=== PATIENT | male | born 1950 | race Caucasian/White ===

== ENCOUNTER 2018-06-24 14:25 | Inpatient (IN) | payer MEDICARE, MEDICAID ==
[~2018-06-24] VITALS: Ht 182.9 cm; Wt 71.7 kg
[2018-06-24] MEDS ORDERED: DULCOLAX10 MG RC (14:30)
[2018-06-24] MEDS ORDERED: PROLENSA1.6 ML OP (14:30)
[2018-06-24] MEDS ORDERED: COREG3.125 MG ORAL (14:30)
[2018-06-24] MEDS ORDERED: LOVENOX40 MG/0.4 SUBQ (14:30)
[2018-06-24] MEDS ORDERED: ACETAMINOPHEN325 M1 ORAL (14:30)
[2018-06-24] MEDS ORDERED: MULTIVITAMINS1 EAC2 ORAL (14:30)
[2018-06-24] MEDS ORDERED: Sodium Chloride 500ML 500 ML IV ONE (14:38)
--- NOTE | 2018-06-24 14:42 | Emergency Room Report ---
History of Present Illness General Chief Complaint: Seizure Source: Medical Record Present Illness HPI Patient is a 67-year-old male sent in by the nursing facility after a witnessed seizure. Patient had no prior history of seizure disorder. Patient was noted to have prior history of COPD as well as paranoid schizophrenia. The patient noted to be full code. The patient reports having generalized body aches. The patient had prior history of polyneuropathy. The history is limited by patient' s poor historian Allergies: Coded Allergies: No Known Allergies (Unverified , 06/24/18) Patient History Reviewed Nursing Documentation: PMH: Agreed; PSxH: Agreed Nursing Documentation-PMH Hx Cardiac Problems: Yes - hyperlipidemia Hx Hypertension: Yes Hx COPD: Yes Hx Diabetes: Yes Review of Systems All Other Systems: negative except mentioned in HPI Physical Exam Vital Signs Date Time Temp Pulse Resp B/P (MAP) Pulse Ox O2 Delivery O2 Flow Rate FiO2 06/24/18 14:20 97.6 52 24 126/73 96 Nasal Cannula 2.0 97.5 Sp02 EP Interpretation: reviewed, normal General Appearance: normal inspection, Chronically Ill Head: atraumatic ENT: normal ENT inspection, hearing grossly normal, normal voice, other - edentulous Neck: normal inspection, full range of motion, supple, no bony tend Respiratory: normal inspection, lungs clear, normal breath sounds, no respiratory distress, no retraction, no wheezing Cardiovascular #1: regular rate, rhythm, no edema Gastrointestinal: normal inspection, normal bowel sounds, non tender, soft, no guarding, no hernia Genitourinary: no CVA tenderness Musculoskeletal: back normal, other - left upper extremity tremor Neurologic: normal inspection, alert, responsive, speech normal Psychiatric: mood/affect normal Skin: normal inspection, normal color, no rash Medical Decision Making Diagnostic Impression: Primary Impression: New onset seizure Additional Impression: Urinary tract infection ER Course Patient presented for seizure. Differential diagnosis included stroke, alcohol withdrawal, cysticercosis, electrolyte abnormality, mass lesion, or intacranial hemorrhage.The laboratory testing was unremarkable CT the head read by radiology showed basal ganglia calcification. The patient was given IV Keppra. Dr. Gentry Mcqueen was contacted for inpatient management Labs Test 06/24/18 14:41 06/24/18 14:56 White Blood Count 11.3 K/UL (4.8-10.8) Red Blood Count 4.61 M/UL (4.70-6.10) Hemoglobin 13.9 G/DL (14.2-18.0) Hematocrit 42.8 % (42.0-52.0) Mean Corpuscular Volume 93 FL (80-99) Mean Corpuscular Hemoglobin 30.1 PG (27.0-31.0) Mean Corpuscular Hemoglobin Concent 32.4 G/DL (32.0-36.0) Red Cell Distribution Width 13.2 % (11.6-14.8) Platelet Count 227 K/UL (150-450) Mean Platelet Volume 8.4 FL (6.5-10.1) Neutrophils (%) (Auto) 67.0 % (45.0-75.0) Lymphocytes (%) (Auto) 20.4 % (20.0-45.0) Monocytes (%) (Auto) 8.6 % (1.0-10.0) Eosinophils (%) (Auto) 3.3 % (0.0-3.0) Basophils (%) (Auto) 0.7 % (0.0-2.0) Sodium Level 137 MMOL/L (136-145) Potassium Level 4.1 MMOL/L (3.5-5.1) Chloride Level 105 MMOL/L (98-107) Carbon Dioxide Level 28 MMOL/L (21-32) Anion Gap 4 mmol/L (5-15) Blood Urea Nitrogen 18 mg/dL (7-18) Creatinine 0.7 MG/DL (0.55-1.30) Estimat Glomerular Filtration Rate > 60 mL/min (>60) Glucose Level 127 MG/DL (74-106) Calcium Level 9.4 MG/DL (8.5-10.1) Total Bilirubin 0.7 MG/DL (0.2-1.0) Aspartate Amino Transf (AST/SGOT) 11 U/L (15-37) Alanine Aminotransferase (ALT/SGPT) 19 U/L (12-78) Alkaline Phosphatase 75 U/L (46-116) Total Protein 7.0 G/DL (6.4-8.2) Albumin 3.0 G/DL (3.4-5.0) Globulin 4.0 g/dL Albumin/Globulin Ratio 0.8 (1.0-2.7) Urine Color Pale yellow Urine Appearance Slightly cloudy Urine pH 7 (4.5-8.0) Urine Specific [place] 1.010 (1.005-1.035) Urine Protein Negative (NEGATIVE) Urine Glucose (UA) Negative (NEGATIVE) Urine Ketones Negative (NEGATIVE) Urine Blood Negative (NEGATIVE) Urine Nitrite Positive (NEGATIVE) Urine Bilirubin Negative (NEGATIVE) Urine Urobilinogen Normal MG/DL (0.0-1.0) Urine Leukocyte Esterase 2+ (NEGATIVE) Urine RBC 0 /HPF (0 - 0) Urine WBC 5-10 /HPF (0 - 0) Urine Squamous Epithelial Cells Few /LPF (NONE/OCC) Urine Bacteria Many /HPF (NONE) Urine Opiates Screen Negative (NEGATIVE) Urine Barbiturates Screen Negative (NEGATIVE) Phencyclidine (PCP) Screen Negative (NEGATIVE) Urine Amphetamines Screen Negative (NEGATIVE) Urine Benzodiazepines Screen Negative (NEGATIVE) Urine Cocaine Screen Negative (NEGATIVE) Urine Marijuana (THC) Screen Negative (NEGATIVE) EKG Diagnostic Results Rate: bradycardiac - 51 Rhythm: NSR ST Segments: no acute changes ASA given to the pt in ED: No Last Vital Signs Date Time Temp Pulse Resp B/P (MAP) Pulse Ox O2 Delivery O2 Flow Rate FiO2 06/24/18 14:20 97.6 52 24 126/73 96 Nasal Cannula 2.0 97.5 Status: unchanged Disposition: ADMITTED INPATIENT Condition: Stable Referrals: Gentry Mcqueen DO (PCP) Thien Enriquez MD Jun 24, 2018 14:42
[2018-06-24] MEDS ORDERED: levETIRAcetam 500 MG in D5W 110 ML IV ONE (14:45)
[2018-06-24 14:58] LABS: BASOPHILS % (AUTO) 0.7 % (0.0-2.0); EOSINOPHILS % (AUTO) 3.3 % (0.0-3.0); HEMATOCRIT 42.8 % (42.0-52.0); HEMOGLOBIN 13.9 G/DL (14.2-18.0); LYMPHOCYTES % (AUTO) 20.4 % (20.0-45.0); MEAN CORPUSCULAR VOLUME 93 FL (80-99); MONOCYTES % (AUTO) 8.6 % (1.0-10.0); PLATELET COUNT 227 K/UL (150-450); RED BLOOD COUNT 4.61 M/UL (4.70-6.10); RED CELL DISTRIBUTION WIDTH 13.2 % (11.6-14.8); WHITE BLOOD COUNT 11.3 K/UL (4.8-10.8)
[2018-06-24 15:08] LABS: ANION GAP 4 mmol/L (5-15); BLOOD UREA NITROGEN 18 mg/dL (7-18); CALCIUM 9.4 MG/DL (8.5-10.1); CARBON DIOXIDE 28 MMOL/L (21-32); CHLORIDE 105 MMOL/L (98-107); CREATININE 0.7 MG/DL (0.55-1.30); POTASSIUM 4.1 MMOL/L (3.5-5.1); SODIUM 137 MMOL/L (136-145)
[2018-06-24 15:13] LABS: ALANINE AMINOTRANSFERASE 19 U/L (12-78); ALBUMIN/GLOBULIN RATIO 0.8 (1.0-2.7); ALKALINE PHOSPHATASE 75 U/L (46-116); ASPARTATE AMINO TRANSFERASE 11 U/L (15-37); BILIRUBIN,TOTAL 0.7 MG/DL (0.2-1.0)
[2018-06-24 15:27] VITALS: BP 139/75
[2018-06-24 15:27] LABS: APPEARANCE,URINE SLIGHTLY CLOUDY; BILIRUBIN, URINE NEGATIVE (NEGATIVE); COLOR,URINE PALE YELLOW; GLUCOSE, URINE (UA) NEGATIVE (NEGATIVE); KETONES,URINE NEGATIVE (NEGATIVE); LEUKOCYTE ESTERASE ,URINE 2+ (NEGATIVE); NITRITE,URINE POSITIVE (NEGATIVE); PH,URINE 7 (4.5-8.0); PROTEIN,URINE NEGATIVE (NEGATIVE); UROBILINOGEN,URINE NORMAL MG/DL (0.0-1.0)
--- NOTE | 2018-06-24 16:07 | Diagnostic Imaging Report ---
Indications: Status post seizure Technique: Spiral acquisitions obtained through the brain. Angled axial and coronal 5 x 5 mm slices were reconstructed. Total dose length product 1527.4 mGycm. CTDI vol(s) 70.38 mGy. Dose reduction achieved using automated exposure control Comparison: None. Findings: There is some image degradation due to motion artifact. A large calcification is seen in the genu of the right internal capsule. No gross acute intracranial hemorrhage or edema, mass effect, nor midline shift. There is mild age-related enlargement of the axial CSF spaces. There is minimal periventricular deep white matter low-attenuation. The calvarium is grossly intact. Visualized orbits and sinuses are unremarkable except for possible bilateral prior cataract surgery. Impression: Somewhat limited exam, as described Right internal capsule calcification. 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 is accredited by the [employer] and the scans are performed using protocols designed to limit radiation exposure to as low as reasonably achievable to attain images of sufficient resolution adequate for diagnostic evaluation.
[2018-06-24 17:57] VITALS: BP 134/78
[2018-06-24] MEDS ORDERED: TRAZODONE HCL50 MG ORAL (18:09)
[2018-06-24] MEDS ORDERED: SEROQUEL25 MG ORAL (18:09)
[2018-06-24] MEDS ORDERED: LEXAPRO20 MG ORAL (18:09)
[2018-06-24] MEDS ORDERED: COLACE100 MG ORAL (18:09)
[2018-06-24] MEDS ORDERED: HEPARIN SO5000 UNIT2 IV (18:11)
[2018-06-24] MEDS ORDERED: PRO-STAT LIQUID30 ML ORAL (18:12)
[2018-06-24] MEDS ORDERED: ATIVAN0.5 MG ORAL (18:15)
[2018-06-24 18:36] VITALS: BP 130/80
[2018-06-24] MEDS ORDERED: Morphine Sulfate 2mg/ml Inj IVP PRN (18:45)
[2018-06-24] MEDS ORDERED: Mylanta II UD 30ml ORAL PRN (18:45)
[2018-06-24] MEDS ORDERED: LORazepam Inj 2mg/ml 1ml IV PRN (18:45)
[2018-06-24] MEDS ORDERED: Miralax 17gm pkt ORAL PRN (18:45)
[2018-06-24 20:00] VITALS: BP 120/73
[2018-06-24] MEDS ORDERED: Zolpidem 5mg tab ORAL PRN (21:00)
[2018-06-24] MEDS: TraZODone 50mg tab ORAL SCH (21:15)
[2018-06-24] MEDS: Heparin 5000 units/ml inj SUBQ SCH (21:16)
[2018-06-24] MEDS: LORazepam 0.5mg tab ORAL PRN (22:00)
[2018-06-24 23:54] VITALS: BP 93/54
[2018-06-25 04:00] VITALS: BP 111/62
[2018-06-25 07:27] LABS: BASOPHILS % (AUTO) 0.5 % (0.0-2.0); EOSINOPHILS % (AUTO) 1.4 % (0.0-3.0); HEMATOCRIT 42.9 % (42.0-52.0); LYMPHOCYTES % (AUTO) 11.1 % (20.0-45.0); MEAN CORPUSCULAR VOLUME 93 FL (80-99); MONOCYTES % (AUTO) 6.9 % (1.0-10.0); PLATELET COUNT 214 K/UL (150-450); RED BLOOD COUNT 4.62 M/UL (4.70-6.10); RED CELL DISTRIBUTION WIDTH 12.8 % (11.6-14.8); WHITE BLOOD COUNT 11.8 K/UL (4.8-10.8)
[2018-06-25 07:48] LABS: ALANINE AMINOTRANSFERASE 19 U/L (12-78); ALBUMIN/GLOBULIN RATIO 0.7 (1.0-2.7); ALKALINE PHOSPHATASE 73 U/L (46-116); ANION GAP 10 mmol/L (5-15); ASPARTATE AMINO TRANSFERASE 9 U/L (15-37); BILIRUBIN,TOTAL 1.2 MG/DL (0.2-1.0); BLOOD UREA NITROGEN 13 mg/dL (7-18); CALCIUM 9.5 MG/DL (8.5-10.1); CARBON DIOXIDE 24 MMOL/L (21-32); CHLORIDE 107 MMOL/L (98-107); CREATININE 0.7 MG/DL (0.55-1.30); SODIUM 141 MMOL/L (136-145)
[2018-06-25 07:53] LABS: BILIRUBIN,DIRECT 0.3 MG/DL (0.0-0.3)
[2018-06-25 08:00] VITALS: BP 103/64
--- NOTE | 2018-06-25 08:08 | Consultation ---
History of Present Illness General Date patient seen: Jun 25, 2018 Chief Complaint: Seizure Reason for Consultation: Leukocytosis Present Illness HPI Mr. Helton is a 67 yo male who presented to the ED on 06/24/18 with witnessed seizures at his residential. He apparently had 2 the day prior to admission and one the day of. He is a poor historian due to aphasia but per notes he has no Hx of seizure. In the ED he was afebrile and had a mild leukocytosis. He has a few WBCs in his UA but is asymptomatic. He has not had further seizures as an inpatient. ID was consulted for leukocytosis PMHx/PSHx HTN COPD DM SocHx Live in a residential FamHx Not contributory Allergies: Coded Allergies: No Known Allergies (Unverified , 06/24/18) Medication History Scheduled Amino Acids/Protein Hydrolys (Pro-Stat Liquid), 30 ML ORAL DAILY, (Reported) Bromfenac Sodium (Prolensa), 1.6 ML OP DAILY, (Reported) Carvedilol (Coreg), 3.125 MG ORAL EVERY 12 HOURS, (Reported) Docusate Sodium* (Colace*), 100 MG ORAL QHS, (Reported) Escitalopram Oxalate* (Lexapro*), 20 MG ORAL DAILY, (Reported) Heparin Sod (Porcine) (Heparin Sodium*), 5,000 UNITS IV DAILY, (Reported) Multivitamins* (Multivitamins*), 1 TAB ORAL DAILY, (Reported) Quetiapine Fumarate* (Seroquel*), 25 MG ORAL TWICE A DAY, (Reported) Trazodone Hcl* (Desyrel*), 50 MG ORAL BEDTIME, (Reported) Scheduled PRN Acetaminophen* (Acetaminophen 325MG Tablet*), 325 MG ORAL Q4H PRN for For Pain, (Reported) Lorazepam* (Ativan*), 0.5 MG ORAL THREE TIMES A DAY PRN for For Anxiety, ( Reported) Discontinued Medications Bisacodyl (Dulcolax), 10 MG RC, (Reported) Discontinued Reason: Pt stopped taking med Enoxaparin (Lovenox), 40 MG SUBQ, (Reported) Discontinued Reason: Pt stopped taking med Patient History Healthcare decision maker N Resuscitation status Full Code Advanced Directive on File No Review of Systems All Other Systems: negative except mentioned in HPI ROS Narrative Unable to obtain as patient not verbal Physical Exam Last 24 Hour Vital Signs Date Time Temp Pulse Resp B/P (MAP) Pulse Ox O2 Delivery O2 Flow Rate FiO2 06/25/18 04:00 98.0 95 20 111/62 (78) 99 98.0 06/25/18 04:00 68 06/24/18 23:54 97.9 78 20 93/54 (67) 98 97.9 06/24/18 23:36 Room Air 06/24/18 23:30 65 06/24/18 21:00 57 06/24/18 20:00 97.3 85 20 120/73 (89) 98 97.3 06/24/18 19:34 54 06/24/18 18:36 98.9 80 20 130/80 (97) 98 98.9 06/24/18 18:01 97.5 54 15 134/78 95 Nasal Cannula 2.0 97.5 06/24/18 17:57 97.5 54 15 134/78 95 Nasal Cannula 2.0 97.5 06/24/18 15:27 97.5 48 15 139/75 94 Nasal Cannula 2.0 97.5 06/24/18 14:45 52 24 Nasal Cannula 2.0 06/24/18 14:20 97.6 52 24 126/73 96 Nasal Cannula 2.0 97.5 Intake and Output 06/24/18 06/25/18 19:00 07:00 Intake Total 615 ml 100 ml Balance 615 ml 100 ml Intake IV Total 615 ml 100 ml # Voids 1 2 Laboratory Tests Test 06/24/18 14:41 06/24/18 14:56 06/25/18 05:55 White Blood Count 11.3 K/UL (4.8-10.8) H 11.8 K/UL (4.8-10.8) H Red Blood Count 4.61 M/UL (4.70-6.10) L 4.62 M/UL (4.70-6.10) L Hemoglobin 13.9 G/DL (14.2-18.0) L 14.0 G/DL (14.2-18.0) L Hematocrit 42.8 % (42.0-52.0) 42.9 % (42.0-52.0) Mean Corpuscular Volume 93 FL (80-99) 93 FL (80-99) Mean Corpuscular Hemoglobin 30.1 PG (27.0-31.0) 30.4 PG (27.0-31.0) Mean Corpuscular Hemoglobin Concent 32.4 G/DL (32.0-36.0) 32.7 G/DL (32.0-36.0) Red Cell Distribution Width 13.2 % (11.6-14.8) 12.8 % (11.6-14.8) Platelet Count 227 K/UL (150-450) 214 K/UL (150-450) Mean Platelet Volume 8.4 FL (6.5-10.1) 7.1 FL (6.5-10.1) Neutrophils (%) (Auto) 67.0 % (45.0-75.0) 80.0 % (45.0-75.0) H Lymphocytes (%) (Auto) 20.4 % (20.0-45.0) 11.1 % (20.0-45.0) L Monocytes (%) (Auto) 8.6 % (1.0-10.0) 6.9 % (1.0-10.0) Eosinophils (%) (Auto) 3.3 % (0.0-3.0) H 1.4 % (0.0-3.0) Basophils (%) (Auto) 0.7 % (0.0-2.0) 0.5 % (0.0-2.0) Sodium Level 137 MMOL/L (136-145) 141 MMOL/L (136-145) Potassium Level 4.1 MMOL/L (3.5-5.1) 4.0 MMOL/L (3.5-5.1) Chloride Level 105 MMOL/L (98-107) 107 MMOL/L (98-107) Carbon Dioxide Level 28 MMOL/L (21-32) 24 MMOL/L (21-32) Anion Gap 4 mmol/L (5-15) L 10 mmol/L (5-15) Blood Urea Nitrogen 18 mg/dL (7-18) 13 mg/dL (7-18) Creatinine 0.7 MG/DL (0.55-1.30) 0.7 MG/DL (0.55-1.30) Estimat Glomerular Filtration Rate > 60 mL/min (>60) > 60 mL/min (>60) Glucose Level 127 MG/DL (74-106) H 72 MG/DL (74-106) L Calcium Level 9.4 MG/DL (8.5-10.1) 9.5 MG/DL (8.5-10.1) Total Bilirubin 0.7 MG/DL (0.2-1.0) 1.2 MG/DL (0.2-1.0) H Aspartate Amino Transf (AST/SGOT) 11 U/L (15-37) L 9 U/L (15-37) L Alanine Aminotransferase (ALT/SGPT) 19 U/L (12-78) 19 U/L (12-78) Alkaline Phosphatase 75 U/L (46-116) 73 U/L (46-116) Total Protein 7.0 G/DL (6.4-8.2) 7.1 G/DL (6.4-8.2) Albumin 3.0 G/DL (3.4-5.0) L 3.0 G/DL (3.4-5.0) L Globulin 4.0 g/dL 4.1 g/dL Albumin/Globulin Ratio 0.8 (1.0-2.7) L 0.7 (1.0-2.7) L Urine Color Pale yellow Urine Appearance Slightly cloudy Urine pH 7 (4.5-8.0) Urine Specific [place] 1.010 (1.005-1.035) Urine Protein Negative (NEGATIVE) Urine Glucose (UA) Negative (NEGATIVE) Urine Ketones Negative (NEGATIVE) Urine Blood Negative (NEGATIVE) Urine Nitrite Positive (NEGATIVE) H Urine Bilirubin Negative (NEGATIVE) Urine Urobilinogen Normal MG/DL (0.0-1.0) Urine Leukocyte Esterase 2+ (NEGATIVE) H Urine RBC 0 /HPF (0 - 0) Urine WBC 5-10 /HPF (0 - 0) H Urine Squamous Epithelial Cells Few /LPF (NONE/OCC) Urine Bacteria Many /HPF (NONE) H Urine Opiates Screen Negative (NEGATIVE) Urine Barbiturates Screen Negative (NEGATIVE) Phencyclidine (PCP) Screen Negative (NEGATIVE) Urine Amphetamines Screen Negative (NEGATIVE) Urine Benzodiazepines Screen Negative (NEGATIVE) Urine Cocaine Screen Negative (NEGATIVE) Urine Marijuana (THC) Screen Negative (NEGATIVE) Direct Bilirubin 0.3 MG/DL (0.0-0.3) Height (Feet): 6 Height (Inches): 0.00 Weight (Pounds): 158 Medications Current Medications Medications (Trade) Dose Ordered Sig/Isidro Route PRN Reason Start Time Stop Time Status Last Admin Dose Admin Acetaminophen (Tylenol) 650 mg Q4H PRN ORAL T>100.5 06/24/18 18:45 07/24/18 18:44 Al Hydroxide/Mg Hydroxide (Mylanta II) 30 ml Q6H PRN ORAL dyspepsia 06/24/18 18:45 07/24/18 18:44 Carvedilol (Coreg) 3.125 mg EVERY 12 HOURS ORAL 06/24/18 21:00 07/24/18 20:59 Dextrose (Dextrose 50%) 25 ml Q1H PRN IV hypoglycemia 06/24/18 19:00 07/24/18 18:59 Dextrose (Dextrose 50%) 50 ml Q1H PRN IV hypoglycemia 06/24/18 19:00 07/24/18 18:59 Heparin Sodium (Porcine) (Heparin 5000 units/ml) 5,000 units EVERY 12 HOURS SUBQ 06/24/18 21:00 07/24/18 20:59 06/24/18 21:16 Levetiracetam (Keppra) 500 mg Q12HR ORAL 06/24/18 21:00 07/24/18 20:59 06/24/18 21:15 Levofloxacin 100 ml @ 100 mls/hr Q24H IVPB 06/24/18 20:00 07/01/18 19:59 06/24/18 21:15 Lorazepam (Ativan 2mg/ml 1ml) 2 mg EVERY HOUR PRN IV seizures 06/24/18 18:45 07/01/18 18:44 Lorazepam (Ativan) 0.5 mg Q8H PRN ORAL For Anxiety 06/24/18 18:45 07/01/18 18:44 06/24/18 22:00 Morphine Sulfate (Morphine Sulfate) 1 mg Q4H PRN IVP PAIN 4-10 06/24/18 18:45 07/01/18 18:44 Ondansetron HCl (Zofran) 4 mg Q6H PRN IVP Nausea & Vomiting 06/24/18 18:45 07/24/18 18:44 Polyethylene Glycol (Miralax) 17 gm HSPRN PRN ORAL Constipation 06/24/18 18:45 07/24/18 18:44 Quetiapine Fumarate (SEROquel) 25 mg Q12HR ORAL 06/24/18 21:00 07/24/18 20:59 06/24/18 21:15 Trazodone HCl (Desyrel) 50 mg BEDTIME ORAL 06/24/18 21:00 07/24/18 20:59 06/24/18 21:15 Zolpidem Tartrate (Ambien) 5 mg HSPRN PRN ORAL Insomnia 06/24/18 21:00 07/01/18 20:59 Objective Narrative Gen:NAD, well appearing, alert HEENT: NCAT, MMM, EOMI, PERRL, No Oral lesion, no scleral icterus NECK:full range of motion, supple, no meningismus, No LAD, No JVD LUNGS:CTAB, No W/C, No Accessory muscle use CARDS: RRR, S1, S2, No M/R/G ABD: Soft, NT, ND, No R/G, + BS, No HSM, No Masses : Deferred Ext: C/C/E, Pulses 2+ B/L (DP, Rad) NEURO: Not verbal, Strength and Sensation Grossly intact but not following commands PSYCH: mood/affect normal SKIN: warm/dry, No rashes Assessment/Plan Assessment/Plan 67 yo male who presented to the ED on 06/24/18 with witnessed seizures at his residential. Leukocytosis Most likely secondary to seizures UA mild leukocytosis HTN COPD DM A: Continue Levofloxacin #2/3 Monitor CBC and Temps Supportive care Thank you for this consult. We will continue to follow the patient during this hospitalization. Luis Nunes MD Jun 25, 2018 08:08
[2018-06-25] MEDS: LORazepam 0.5mg tab ORAL PRN (09:07)
[2018-06-25] MEDS: Heparin 5000 units/ml inj SUBQ SCH ×2 (09:13→21:02)
--- NOTE | 2018-06-25 10:10 | Consultation ---
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 Patient had no prior history of seizure disorder. The patient reports having generalized body aches. The history is limited by patient's poor historian. Pt is awake, uttering some sounds which sound like incomprehensible speech. Allergies: Coded Allergies: No Known Allergies (Unverified , 06/24/18) Medication History Scheduled Amino Acids/Protein Hydrolys (Pro-Stat Liquid), 30 ML ORAL DAILY, (Reported) Bromfenac Sodium (Prolensa), 1.6 ML OP DAILY, (Reported) Carvedilol (Coreg), 3.125 MG ORAL EVERY 12 HOURS, (Reported) Docusate Sodium* (Colace*), 100 MG ORAL QHS, (Reported) Escitalopram Oxalate* (Lexapro*), 20 MG ORAL DAILY, (Reported) Heparin Sod (Porcine) (Heparin Sodium*), 5,000 UNITS IV DAILY, (Reported) Multivitamins* (Multivitamins*), 1 TAB ORAL DAILY, (Reported) Quetiapine Fumarate* (Seroquel*), 25 MG ORAL TWICE A DAY, (Reported) Trazodone Hcl* (Desyrel*), 50 MG ORAL BEDTIME, (Reported) Scheduled PRN Acetaminophen* (Acetaminophen 325MG Tablet*), 325 MG ORAL Q4H PRN for For Pain, (Reported) Lorazepam* (Ativan*), 0.5 MG ORAL THREE TIMES A DAY PRN for For Anxiety, ( Reported) Discontinued Medications Bisacodyl (Dulcolax), 10 MG RC, (Reported) Discontinued Reason: Pt stopped taking med Enoxaparin (Lovenox), 40 MG SUBQ, (Reported) Discontinued Reason: Pt stopped taking med Patient History Healthcare decision maker N Resuscitation status Full Code Advanced Directive on File No Past Medical/Surgical History Past Medical/Surgical History: (1) Parkinson disease (2) Diabetes mellitus (3) COPD (chronic obstructive pulmonary disease) (4) Hypertension Review of Systems All Other Systems: negative except mentioned in HPI Physical Exam General Appearance: WD/WN Lines, tubes and drains: peripheral HEENT: normocephalic Neck: non-tender, normal alignment Respiratory/Chest: chest wall non-tender, lungs clear Cardiovascular/Chest: normal peripheral pulses, normal rate, no JVD Abdomen: normal bowel sounds, non tender Genitourinary/Rectal: normal genital exam Extremities: normal range of motion, non-pitting Skin Exam: normal pigmentation Last 24 Hour Vital Signs Date Time Temp Pulse Resp B/P (MAP) Pulse Ox O2 Delivery O2 Flow Rate FiO2 06/25/18 09:00 62 103/64 06/25/18 09:00 Nasal Cannula 2.0 06/25/18 08:00 98.3 62 20 103/64 (77) 98 98.3 06/25/18 04:00 98.0 95 20 111/62 (78) 99 98.0 06/25/18 04:00 68 06/24/18 23:54 97.9 78 20 93/54 (67) 98 97.9 06/24/18 23:36 Room Air 06/24/18 23:30 65 06/24/18 21:00 57 06/24/18 20:00 97.3 85 20 120/73 (89) 98 97.3 06/24/18 19:34 54 06/24/18 18:36 98.9 80 20 130/80 (97) 98 98.9 06/24/18 18:01 97.5 54 15 134/78 95 Nasal Cannula 2.0 97.5 06/24/18 17:57 97.5 54 15 134/78 95 Nasal Cannula 2.0 97.5 06/24/18 15:27 97.5 48 15 139/75 94 Nasal Cannula 2.0 97.5 06/24/18 14:45 52 24 Nasal Cannula 2.0 06/24/18 14:20 97.6 52 24 126/73 96 Nasal Cannula 2.0 97.5 Intake and Output 06/24/18 06/25/18 19:00 07:00 Intake Total 615 ml 100 ml Balance 615 ml 100 ml IV Total 615 ml 100 ml # Voids 1 2 Laboratory Tests Test 06/24/18 14:41 06/24/18 14:56 06/25/18 05:55 White Blood Count 11.3 K/UL (4.8-10.8) H 11.8 K/UL (4.8-10.8) H Red Blood Count 4.61 M/UL (4.70-6.10) L 4.62 M/UL (4.70-6.10) L Hemoglobin 13.9 G/DL (14.2-18.0) L 14.0 G/DL (14.2-18.0) L Hematocrit 42.8 % (42.0-52.0) 42.9 % (42.0-52.0) Mean Corpuscular Volume 93 FL (80-99) 93 FL (80-99) Mean Corpuscular Hemoglobin 30.1 PG (27.0-31.0) 30.4 PG (27.0-31.0) Mean Corpuscular Hemoglobin Concent 32.4 G/DL (32.0-36.0) 32.7 G/DL (32.0-36.0) Red Cell Distribution Width 13.2 % (11.6-14.8) 12.8 % (11.6-14.8) Platelet Count 227 K/UL (150-450) 214 K/UL (150-450) Mean Platelet Volume 8.4 FL (6.5-10.1) 7.1 FL (6.5-10.1) Neutrophils (%) (Auto) 67.0 % (45.0-75.0) 80.0 % (45.0-75.0) H Lymphocytes (%) (Auto) 20.4 % (20.0-45.0) 11.1 % (20.0-45.0) L Monocytes (%) (Auto) 8.6 % (1.0-10.0) 6.9 % (1.0-10.0) Eosinophils (%) (Auto) 3.3 % (0.0-3.0) H 1.4 % (0.0-3.0) Basophils (%) (Auto) 0.7 % (0.0-2.0) 0.5 % (0.0-2.0) Sodium Level 137 MMOL/L (136-145) 141 MMOL/L (136-145) Potassium Level 4.1 MMOL/L (3.5-5.1) 4.0 MMOL/L (3.5-5.1) Chloride Level 105 MMOL/L (98-107) 107 MMOL/L (98-107) Carbon Dioxide Level 28 MMOL/L (21-32) 24 MMOL/L (21-32) Anion Gap 4 mmol/L (5-15) L 10 mmol/L (5-15) Blood Urea Nitrogen 18 mg/dL (7-18) 13 mg/dL (7-18) Creatinine 0.7 MG/DL (0.55-1.30) 0.7 MG/DL (0.55-1.30) Estimat Glomerular Filtration Rate > 60 mL/min (>60) > 60 mL/min (>60) Glucose Level 127 MG/DL (74-106) H 72 MG/DL (74-106) L Calcium Level 9.4 MG/DL (8.5-10.1) 9.5 MG/DL (8.5-10.1) Total Bilirubin 0.7 MG/DL (0.2-1.0) 1.2 MG/DL (0.2-1.0) H Aspartate Amino Transf (AST/SGOT) 11 U/L (15-37) L 9 U/L (15-37) L Alanine Aminotransferase (ALT/SGPT) 19 U/L (12-78) 19 U/L (12-78) Alkaline Phosphatase 75 U/L (46-116) 73 U/L (46-116) Total Protein 7.0 G/DL (6.4-8.2) 7.1 G/DL (6.4-8.2) Albumin 3.0 G/DL (3.4-5.0) L 3.0 G/DL (3.4-5.0) L Globulin 4.0 g/dL 4.1 g/dL Albumin/Globulin Ratio 0.8 (1.0-2.7) L 0.7 (1.0-2.7) L Urine Color Pale yellow Urine Appearance Slightly cloudy Urine pH 7 (4.5-8.0) Urine Specific [place] 1.010 (1.005-1.035) Urine Protein Negative (NEGATIVE) Urine Glucose (UA) Negative (NEGATIVE) Urine Ketones Negative (NEGATIVE) Urine Blood Negative (NEGATIVE) Urine Nitrite Positive (NEGATIVE) H Urine Bilirubin Negative (NEGATIVE) Urine Urobilinogen Normal MG/DL (0.0-1.0) Urine Leukocyte Esterase 2+ (NEGATIVE) H Urine RBC 0 /HPF (0 - 0) Urine WBC 5-10 /HPF (0 - 0) H Urine Squamous Epithelial Cells Few /LPF (NONE/OCC) Urine Bacteria Many /HPF (NONE) H Urine Opiates Screen Negative (NEGATIVE) Urine Barbiturates Screen Negative (NEGATIVE) Phencyclidine (PCP) Screen Negative (NEGATIVE) Urine Amphetamines Screen Negative (NEGATIVE) Urine Benzodiazepines Screen Negative (NEGATIVE) Urine Cocaine Screen Negative (NEGATIVE) Urine Marijuana (THC) Screen Negative (NEGATIVE) Direct Bilirubin 0.3 MG/DL (0.0-0.3) Height (Feet): 6 Height (Inches): 0.00 Weight (Pounds): 158 Medications Current Medications Medications (Trade) Dose Ordered Sig/Isidro Route PRN Reason Start Time Stop Time Status Last Admin Dose Admin Acetaminophen (Tylenol) 650 mg Q4H PRN ORAL T>100.5 06/24/18 18:45 07/24/18 18:44 Al Hydroxide/Mg Hydroxide (Mylanta II) 30 ml Q6H PRN ORAL dyspepsia 06/24/18 18:45 07/24/18 18:44 Carvedilol (Coreg) 3.125 mg EVERY 12 HOURS ORAL 06/24/18 21:00 07/24/18 20:59 Dextrose (Dextrose 50%) 25 ml Q1H PRN IV hypoglycemia 06/24/18 19:00 07/24/18 18:59 Dextrose (Dextrose 50%) 50 ml Q1H PRN IV hypoglycemia 06/24/18 19:00 07/24/18 18:59 Heparin Sodium (Porcine) (Heparin 5000 units/ml) 5,000 units EVERY 12 HOURS SUBQ 06/24/18 21:00 07/24/18 20:59 06/25/18 09:13 Levetiracetam (Keppra) 500 mg Q12HR ORAL 06/24/18 21:00 07/24/18 20:59 06/25/18 09:07 Levofloxacin 100 ml @ 100 mls/hr Q24H IVPB 06/24/18 20:00 07/01/18 19:59 06/24/18 21:15 Lorazepam (Ativan 2mg/ml 1ml) 2 mg EVERY HOUR PRN IV seizures 06/24/18 18:45 07/01/18 18:44 Lorazepam (Ativan) 0.5 mg Q8H PRN ORAL For Anxiety 06/24/18 18:45 07/01/18 18:44 06/25/18 09:07 Morphine Sulfate (Morphine Sulfate) 1 mg Q4H PRN IVP PAIN 4-10 06/24/18 18:45 07/01/18 18:44 Ondansetron HCl (Zofran) 4 mg Q6H PRN IVP Nausea & Vomiting 06/24/18 18:45 07/24/18 18:44 Polyethylene Glycol (Miralax) 17 gm HSPRN PRN ORAL Constipation 06/24/18 18:45 07/24/18 18:44 Quetiapine Fumarate (SEROquel) 25 mg Q12HR ORAL 06/24/18 21:00 07/24/18 20:59 06/25/18 09:07 Trazodone HCl (Desyrel) 50 mg BEDTIME ORAL 06/24/18 21:00 07/24/18 20:59 06/24/18 21:15 Zolpidem Tartrate (Ambien) 5 mg HSPRN PRN ORAL Insomnia 06/24/18 21:00 07/01/18 20:59 Assessment/Plan Problem List: (1) New onset seizure ICD Codes: R56.9 - Unspecified convulsions SNOMED: 13983749 (2) COPD (chronic obstructive pulmonary disease) ICD Codes: J44.9 - Chronic obstructive pulmonary disease, unspecified SNOMED: 22467771 (3) Urinary tract infection ICD Codes: N39.0 - Urinary tract infection, site not specified SNOMED: 89825973 (4) Diabetes mellitus ICD Codes: E11.9 - Type 2 diabetes mellitus without complications SNOMED: 15108044 (5) Hypertension ICD Codes: I10 - Essential (primary) hypertension SNOMED: 66210777 (6) Parkinson disease ICD Codes: G20 - Parkinson's disease SNOMED: 36818676 Assessment/Plan Neuro evaluation ( not available right now) start on Depakote, ( pt received an IV dose in ER) urine c/s IV abx for UTI sliding scale diabetic diet Pt/OT Conor Holloway MD Jun 25, 2018 10:10
[2018-06-25] MEDS ORDERED: LORazepam Inj 2mg/ml 1ml IV SCH (11:00)
[2018-06-25 11:52] VITALS: BP 111/65
--- NOTE | 2018-06-25 15:31 | Diagnostic Imaging Report ---
Indication: Altered mental status, new onset seizure Technique: sagittal T1 fast spin echo, axial T1 FLAIR, axial T2 FLAIR, axial T2 FS PROPELLER, axial T2* GRE, axial diffusion weighted images. ADC and exponential ADC maps generated. No IV contrast, reason not stated Comparison: Head CT from . Yesterday Findings: There is a slight degree of image degradation due to motion artifact. No abnormal areas of restricted diffusion to suggest acute infarction. No acute hemorrhage or edema. No mass effect nor midline shift. There is age-related enlargement of the ventricles and extra-axial CSF spaces. The vascular flow voids are preserved. There is evidence of prior bilateral cataract surgery. There is left maxillary sinus opacification. Visualized orbits and sinuses are unremarkable. Impression: Mild age-related volume loss Negative for acute intracranial bleed, mass effect, or infarct
[2018-06-25 16:00] VITALS: BP 122/68
[2018-06-25 19:58] VITALS: BP 109/62
[2018-06-25] MEDS: TraZODone 50mg tab ORAL SCH (20:57)
--- NOTE | 2018-06-25 23:45 | History and Physical Report ---
DATE OF ADMISSION: 06/24/2018 APPROXIMATE TIME: On 06/25/2018 at 1 p.m. CONSULTANTS: 1. Conor Holloway M.D. 2. Daniel Coyne M.D. 3. Shay Snell M.D. CHIEF COMPLAINT: New onset of seizure, UTI, and sepsis. BRIEF HISTORY: This is a 67-year-old male from [facility], apparently had two episodes of witnessed new onset seizure. He became very postictal. He was sent to [facility], diagnosed the above, and admitted to telemetry for further care. Currently, lethargic, sleeping in bed, not responding to questions. REVIEW OF SYSTEMS: Unavailable from chart. PAST MEDICAL HISTORY: Includes diabetes, Parkinson's, COPD, hypertension, and new onset of seizure. PAST SURGICAL HISTORY: Unknown. ALLERGIES: Denies. SOCIAL HISTORY: Unable to obtain secondary to the patient's condition. OBJECTIVE: GENERAL: Lethargic, not responding to questions. VITAL SIGNS: Temperature is 98 degrees, pulse 76, respirations 20, and blood pressure 111/65. CARDIOVASCULAR: Without murmurs. LUNGS: Distant and clear. ABDOMEN: Bowel sounds positive. Nontender. Nondistended. EXTREMITIES: No cyanosis, clubbing, or edema. NEUROLOGIC: The patient in slightly flaccid in bed, not responding to questions . LABORATORY DATA: Laboratories show white count 11.8, hemoglobin and hematocrit 14/42, and platelets 214,000. BMP shows glucose 72, AST 9, and albumin 3.0, otherwise, normal. Urinalysis, 2+ leukocyte esterase. Urine toxicology is negative. MEDICATIONS: Include lorazepam, carvedilol, quetiapine, trazodone, zolpidem, , levofloxacin, lorazepam, Zofran, Tylenol, and morphine. ASSESSMENT: 1. New onset of seizure. 2. UTI. 3. Sepsis. 4. Bradycardia. 5. Lethargy. 6. Diabetes. 7. Hypertension. 8. Parkinson's. 9. COPD. 10. Malnutrition. PLAN: 1. Continue previous medications. 2. OT, PT, and dietary evaluation. 3. CBC and BMP in the morning. 4. Seizure precautions. 5. Antibiotic per Infectious Disease. 6. Blood pressure and blood sugar control. 7. Dietary followup. 8. We will continue to follow the patient. 9. Dr. Holloway, Dr. Coyne, Dr. Snell, and Dr. Petersen to consult. Gentry Mcqueen D.O. DR: PETEY JOB#: [id number] CC:
[2018-06-26] VITALS (7 sets, daily range): BP systolic 113–128; BP diastolic 53–75
[2018-06-26 06:36] LABS: BASOPHILS % (AUTO) 0.5 % (0.0-2.0); EOSINOPHILS % (AUTO) 2.2 % (0.0-3.0); HEMATOCRIT 40.8 % (42.0-52.0); HEMOGLOBIN 13.4 G/DL (14.2-18.0); LYMPHOCYTES % (AUTO) 12.6 % (20.0-45.0); MEAN CORPUSCULAR VOLUME 93 FL (80-99); MONOCYTES % (AUTO) 8.7 % (1.0-10.0); NEUTROPHILS % (AUTO) 75.9 % (45.0-75.0); PLATELET COUNT 202 K/UL (150-450); RED BLOOD COUNT 4.38 M/UL (4.70-6.10); RED CELL DISTRIBUTION WIDTH 13.1 % (11.6-14.8); WHITE BLOOD COUNT 11.8 K/UL (4.8-10.8)
[2018-06-26 06:50] LABS: ALANINE AMINOTRANSFERASE 19 U/L (12-78); ALBUMIN 2.8 G/DL (3.4-5.0); ALBUMIN/GLOBULIN RATIO 0.7 (1.0-2.7); ALKALINE PHOSPHATASE 74 U/L (46-116); ANION GAP 7 mmol/L (5-15); ASPARTATE AMINO TRANSFERASE 13 U/L (15-37); BILIRUBIN,TOTAL 0.7 MG/DL (0.2-1.0); BLOOD UREA NITROGEN 14 mg/dL (7-18); CARBON DIOXIDE 26 MMOL/L (21-32); CHLORIDE 109 MMOL/L (98-107); CREATININE 0.8 MG/DL (0.55-1.30); POTASSIUM 4.1 MMOL/L (3.5-5.1); SODIUM 141 MMOL/L (136-145)
[2018-06-26] MEDS: Heparin 5000 units/ml inj SUBQ SCH ×2 (09:45→21:05)
--- NOTE | 2018-06-26 10:06 | Pulmonology Progress Note ---
Assessment/Plan Problems: (1) New onset seizure (2) COPD (chronic obstructive pulmonary disease) (3) Urinary tract infection (4) Diabetes mellitus (5) Hypertension (6) Parkinson disease Assessment/Plan no more seizures respiratory treatment doing better more coherent med/surg increase the dose of Depakote to 1000 BID pt/ot Subjective ROS Limited/Unobtainable: No Constitutional: Reports: no symptoms HEENT: Repors: no symptoms Respiratory: Reports: no symptoms Cardiovascular: Reports: no symptoms Allergies: Coded Allergies: No Known Allergies (Unverified , 06/24/18) Objective Last 24 Hour Vital Signs Date Time Temp Pulse Resp B/P (MAP) Pulse Ox O2 Delivery O2 Flow Rate FiO2 06/26/18 04:00 66 06/26/18 04:00 99.1 80 20 124/64 (84) 96 99.1 06/26/18 00:00 97.5 76 20 115/53 (73) 95 97.5 06/26/18 00:00 75 06/25/18 21:00 Room Air 06/25/18 20:57 78 109/62 06/25/18 20:00 67 06/25/18 19:58 97.9 78 21 109/62 (78) 96 97.9 06/25/18 16:00 67 06/25/18 16:00 97.9 62 20 122/68 (86) 96 97.9 06/25/18 12:00 66 06/25/18 11:52 98.0 76 20 111/65 (80) 95 98.0 Intake and Output 06/25/18 06/26/18 19:00 07:00 Intake Total 360 ml Balance 360 ml Intake Oral 360 ml # Voids 3 1 # Bowel Movements 1 General Appearance: WD/WN HEENT: normocephalic, atraumatic Respiratory/Chest: chest wall non-tender, lungs clear Cardiovascular: normal peripheral pulses, normal rate Abdomen: normal bowel sounds, soft, non tender Genitourinary: normal external genitalia Extremities: no clubbing Skin: no lesions, no ulcers Microbiology Date/Time Source Procedure Growth Status 06/24/18 15:35 Nasal Nares MRSA Culture - Final NO METHICILLIN RESISTANT STAPH AUREUS... Complete 06/24/18 14:56 Urine,Clean Catch Urine Culture - Preliminary Gram Negative Bacillus 1 Resulted 06/24/18 15:35 Rectum VRE Culture - Final Enterococcus Faecalis - Vre Resulted 06/24/18 15:35 Rectum Pending Resulted Laboratory Tests 06/26/18 06:00: White Blood Count 11.8H, Red Blood Count 4.38L, Hemoglobin 13.4L, Hematocrit 40.8L, Mean Corpuscular Volume 93, Mean Corpuscular Hemoglobin 30.6, Mean Corpuscular Hemoglobin Concent 32.9, Red Cell Distribution Width 13.1, Platelet Count 202, Mean Platelet Volume 7.5, Neutrophils (%) (Auto) 75.9H, Lymphocytes ( %) (Auto) 12.6L, Monocytes (%) (Auto) 8.7, Eosinophils (%) (Auto) 2.2, Basophils (%) (Auto) 0.5, Sodium Level 141, Potassium Level 4.1, Chloride Level 109H, Carbon Dioxide Level 26, Anion Gap 7, Blood Urea Nitrogen 14, Creatinine 0.8, Estimat Glomerular Filtration Rate > 60, Glucose Level 81, Calcium Level 9.0, Phosphorus Level 3.0, Magnesium Level 1.7L, Total Bilirubin 0.7, Aspartate Amino Transf (AST/SGOT) 13L, Alanine Aminotransferase (ALT/SGPT) 19, Alkaline Phosphatase 74, Total Protein 6.8, Albumin 2.8L, Globulin 4.0, Albumin/Globulin Ratio 0.7L Current Medications Medications (Trade) Dose Ordered Sig/Isidro Route PRN Reason Start Time Stop Time Status Last Admin Dose Admin Acetaminophen (Tylenol) 650 mg Q4H PRN ORAL T>100.5 06/24/18 18:45 07/24/18 18:44 Al Hydroxide/Mg Hydroxide (Mylanta II) 30 ml Q6H PRN ORAL dyspepsia 06/24/18 18:45 07/24/18 18:44 Carvedilol (Coreg) 3.125 mg EVERY 12 HOURS ORAL 06/24/18 21:00 07/24/18 20:59 06/25/18 20:57 Dextrose (Dextrose 50%) 25 ml Q1H PRN IV hypoglycemia 06/24/18 19:00 07/24/18 18:59 Dextrose (Dextrose 50%) 50 ml Q1H PRN IV hypoglycemia 06/24/18 19:00 07/24/18 18:59 Heparin Sodium (Porcine) (Heparin 5000 units/ml) 5,000 units EVERY 12 HOURS SUBQ 06/24/18 21:00 07/24/18 20:59 06/26/18 09:45 Levetiracetam (Keppra) 500 mg Q12HR ORAL 06/24/18 21:00 07/24/18 20:59 06/26/18 09:46 Levofloxacin 100 ml @ 100 mls/hr Q24H IVPB 06/24/18 20:00 07/01/18 19:59 06/25/18 20:00 Lorazepam (Ativan 2mg/ml 1ml) 2 mg EVERY HOUR PRN IV seizures 06/24/18 18:45 07/01/18 18:44 Lorazepam (Ativan) 0.5 mg Q8H PRN ORAL For Anxiety 06/24/18 18:45 07/01/18 18:44 06/25/18 09:07 Morphine Sulfate (Morphine Sulfate) 1 mg Q4H PRN IVP PAIN 4-10 06/24/18 18:45 07/01/18 18:44 Ondansetron HCl (Zofran) 4 mg Q6H PRN IVP Nausea & Vomiting 06/24/18 18:45 07/24/18 18:44 Polyethylene Glycol (Miralax) 17 gm HSPRN PRN ORAL Constipation 06/24/18 18:45 07/24/18 18:44 Quetiapine Fumarate (SEROquel) 25 mg Q12HR ORAL 06/24/18 21:00 07/24/18 20:59 06/26/18 09:45 Trazodone HCl (Desyrel) 50 mg BEDTIME ORAL 06/24/18 21:00 07/24/18 20:59 06/25/18 20:57 Zolpidem Tartrate (Ambien) 5 mg HSPRN PRN ORAL Insomnia 06/24/18 21:00 07/01/18 20:59 Conor Holloway MD Jun 26, 2018 10:06
--- NOTE | 2018-06-26 10:21 | Infectious Diseases Prog Note ---
Assessment/Plan Assessment/Plan 67 yo male who presented to the ED on 06/24/18 with witnessed seizures at his retirement. Leukocytosis - stable mild UA mild leukocytosis HTN COPD DM A: Continue Levofloxacin #3/7 - Pending cultures Monitor CBC and Temps Supportive care We will continue to follow the patient during this hospitalization. Subjective Allergies: Coded Allergies: No Known Allergies (Unverified , 06/24/18) Subjective Patient afebrile Continued mild leukocytosis Awake - not verbal Objective Vital Signs Last 24 Hour Vital Signs Date Time Temp Pulse Resp B/P (MAP) Pulse Ox O2 Delivery O2 Flow Rate FiO2 06/26/18 04:00 66 06/26/18 04:00 99.1 80 20 124/64 (84) 96 99.1 06/26/18 00:00 97.5 76 20 115/53 (73) 95 97.5 06/26/18 00:00 75 06/25/18 21:00 Room Air 06/25/18 20:57 78 109/62 06/25/18 20:00 67 06/25/18 19:58 97.9 78 21 109/62 (78) 96 97.9 06/25/18 16:00 67 06/25/18 16:00 97.9 62 20 122/68 (86) 96 97.9 06/25/18 12:00 66 06/25/18 11:52 98.0 76 20 111/65 (80) 95 98.0 Height (Feet): 6 Height (Inches): 0.00 Weight (Pounds): 158 Objective Gen:NAD, Awake, Hard to under stand but clearer then before. HEENT: NCAT, MMM, EOMI, LUNGS:CTAB, No W/C, No Accessory muscle use CARDS: RRR, S1, S2, No M/R/G ABD: Soft, NT, ND, No R/G, + BS Ext: C/C/E, Pulses 2+ B/L (DP, Rad) NEURO: A/O x 1 able answer simple questions Microbiology Date/Time Source Procedure Growth Status 06/24/18 15:35 Nasal Nares MRSA Culture - Final NO METHICILLIN RESISTANT STAPH AUREUS... Complete 06/24/18 14:56 Urine,Clean Catch Urine Culture - Preliminary Gram Negative Bacillus 1 Resulted 06/24/18 15:35 Rectum VRE Culture - Final Enterococcus Faecalis - Vre Resulted 06/24/18 15:35 Rectum Pending Resulted Laboratory Tests Test 06/26/18 06:00 White Blood Count 11.8 K/UL (4.8-10.8) H Red Blood Count 4.38 M/UL (4.70-6.10) L Hemoglobin 13.4 G/DL (14.2-18.0) L Hematocrit 40.8 % (42.0-52.0) L Mean Corpuscular Volume 93 FL (80-99) Mean Corpuscular Hemoglobin 30.6 PG (27.0-31.0) Mean Corpuscular Hemoglobin Concent 32.9 G/DL (32.0-36.0) Red Cell Distribution Width 13.1 % (11.6-14.8) Platelet Count 202 K/UL (150-450) Mean Platelet Volume 7.5 FL (6.5-10.1) Neutrophils (%) (Auto) 75.9 % (45.0-75.0) H Lymphocytes (%) (Auto) 12.6 % (20.0-45.0) L Monocytes (%) (Auto) 8.7 % (1.0-10.0) Eosinophils (%) (Auto) 2.2 % (0.0-3.0) Basophils (%) (Auto) 0.5 % (0.0-2.0) Sodium Level 141 MMOL/L (136-145) Potassium Level 4.1 MMOL/L (3.5-5.1) Chloride Level 109 MMOL/L (98-107) H Carbon Dioxide Level 26 MMOL/L (21-32) Anion Gap 7 mmol/L (5-15) Blood Urea Nitrogen 14 mg/dL (7-18) Creatinine 0.8 MG/DL (0.55-1.30) Estimat Glomerular Filtration Rate > 60 mL/min (>60) Glucose Level 81 MG/DL (74-106) Calcium Level 9.0 MG/DL (8.5-10.1) Phosphorus Level 3.0 MG/DL (2.5-4.9) Magnesium Level 1.7 MG/DL (1.8-2.4) L Total Bilirubin 0.7 MG/DL (0.2-1.0) Aspartate Amino Transf (AST/SGOT) 13 U/L (15-37) L Alanine Aminotransferase (ALT/SGPT) 19 U/L (12-78) Alkaline Phosphatase 74 U/L (46-116) Total Protein 6.8 G/DL (6.4-8.2) Albumin 2.8 G/DL (3.4-5.0) L Globulin 4.0 g/dL Albumin/Globulin Ratio 0.7 (1.0-2.7) L Current Medications Medications (Trade) Dose Ordered Sig/Isidro Route PRN Reason Start Time Stop Time Status Last Admin Dose Admin Acetaminophen (Tylenol) 650 mg Q4H PRN ORAL T>100.5 06/24/18 18:45 07/24/18 18:44 Al Hydroxide/Mg Hydroxide (Mylanta II) 30 ml Q6H PRN ORAL dyspepsia 06/24/18 18:45 07/24/18 18:44 Carvedilol (Coreg) 3.125 mg EVERY 12 HOURS ORAL 06/24/18 21:00 07/24/18 20:59 06/25/18 20:57 Dextrose (Dextrose 50%) 25 ml Q1H PRN IV hypoglycemia 06/24/18 19:00 07/24/18 18:59 Dextrose (Dextrose 50%) 50 ml Q1H PRN IV hypoglycemia 06/24/18 19:00 07/24/18 18:59 Heparin Sodium (Porcine) (Heparin 5000 units/ml) 5,000 units EVERY 12 HOURS SUBQ 06/24/18 21:00 07/24/18 20:59 06/26/18 09:45 Levetiracetam (Keppra) 1,000 mg Q12HR ORAL 06/26/18 21:00 07/24/18 20:59 Levofloxacin 100 ml @ 100 mls/hr Q24H IVPB 06/24/18 20:00 07/01/18 19:59 06/25/18 20:00 Lorazepam (Ativan 2mg/ml 1ml) 2 mg EVERY HOUR PRN IV seizures 06/24/18 18:45 07/01/18 18:44 Lorazepam (Ativan) 0.5 mg Q8H PRN ORAL For Anxiety 06/24/18 18:45 07/01/18 18:44 06/25/18 09:07 Morphine Sulfate (Morphine Sulfate) 1 mg Q4H PRN IVP PAIN 4-10 9/25/18 18:45 07/01/18 18:44 Ondansetron HCl (Zofran) 4 mg Q6H PRN IVP Nausea & Vomiting 06/24/18 18:45 07/24/18 18:44 Polyethylene Glycol (Miralax) 17 gm HSPRN PRN ORAL Constipation 06/24/18 18:45 07/24/18 18:44 Quetiapine Fumarate (SEROquel) 25 mg Q12HR ORAL 06/24/18 21:00 07/24/18 20:59 06/26/18 09:45 Trazodone HCl (Desyrel) 50 mg BEDTIME ORAL 06/24/18 21:00 07/24/18 20:59 06/25/18 20:57 Zolpidem Tartrate (Ambien) 5 mg HSPRN PRN ORAL Insomnia 06/24/18 21:00 07/01/18 20:59 Luis Nunes MD Jun 26, 2018 10:21
--- NOTE | 2018-06-26 12:09 | General Progress Note ---
Assessment/Plan Problem List: (1) Urinary tract infection ICD Codes: N39.0 - Urinary tract infection, site not specified SNOMED: 15682603 (2) Parkinson disease ICD Codes: G20 - Parkinson's disease SNOMED: 88352631 (3) Diabetes mellitus ICD Codes: E11.9 - Type 2 diabetes mellitus without complications SNOMED: 05834693 (4) COPD (chronic obstructive pulmonary disease) ICD Codes: J44.9 - Chronic obstructive pulmonary disease, unspecified SNOMED: 76647712 (5) Hypertension ICD Codes: I10 - Essential (primary) hypertension SNOMED: 70892759 (6) Seizure disorder ICD Codes: G40.909 - Epilepsy, unspecified, not intractable, without status epilepticus SNOMED: 308788612 (7) New onset seizure ICD Codes: R56.9 - Unspecified convulsions SNOMED: 54406407 Status: stable, progressing Assessment/Plan ot pt diet seizure control abx cbc bmp am dc plan Subjective Constitutional: Reports: weakness Allergies: Coded Allergies: No Known Allergies (Unverified , 06/24/18) All Systems: reviewed and negative except above Subjective calm in bed Objective Last 24 Hour Vital Signs Date Time Temp Pulse Resp B/P (MAP) Pulse Ox O2 Delivery O2 Flow Rate FiO2 06/26/18 11:27 Room Air 06/26/18 08:00 60 06/26/18 08:00 97.3 55 20 114/60 (78) 96 97.3 06/26/18 04:00 66 06/26/18 04:00 99.1 80 20 124/64 (84) 96 99.1 06/26/18 00:00 97.5 76 20 115/53 (73) 95 97.5 06/26/18 00:00 75 06/25/18 21:00 Room Air 06/25/18 20:57 78 109/62 06/25/18 20:00 67 06/25/18 19:58 97.9 78 21 109/62 (78) 96 97.9 06/25/18 16:00 67 06/25/18 16:00 97.9 62 20 122/68 (86) 96 97.9 Intake and Output 06/25/18 06/26/18 19:00 07:00 Intake Total 360 ml Balance 360 ml Intake Oral 360 ml # Voids 3 1 # Bowel Movements 1 Laboratory Tests 06/26/18 06:00: White Blood Count 11.8H, Red Blood Count 4.38L, Hemoglobin 13.4L, Hematocrit 40.8L, Mean Corpuscular Volume 93, Mean Corpuscular Hemoglobin 30.6, Mean Corpuscular Hemoglobin Concent 32.9, Red Cell Distribution Width 13.1, Platelet Count 202, Mean Platelet Volume 7.5, Neutrophils (%) (Auto) 75.9H, Lymphocytes ( %) (Auto) 12.6L, Monocytes (%) (Auto) 8.7, Eosinophils (%) (Auto) 2.2, Basophils (%) (Auto) 0.5, Sodium Level 141, Potassium Level 4.1, Chloride Level 109H, Carbon Dioxide Level 26, Anion Gap 7, Blood Urea Nitrogen 14, Creatinine 0.8, Estimat Glomerular Filtration Rate > 60, Glucose Level 81, Calcium Level 9.0, Phosphorus Level 3.0, Magnesium Level 1.7L, Total Bilirubin 0.7, Aspartate Amino Transf (AST/SGOT) 13L, Alanine Aminotransferase (ALT/SGPT) 19, Alkaline Phosphatase 74, Total Protein 6.8, Albumin 2.8L, Globulin 4.0, Albumin/Globulin Ratio 0.7L Height (Feet): 6 Height (Inches): 0.00 Weight (Pounds): 158 General Appearance: lethargic EENT: PERRL/EOMI Neck: normal alignment Cardiovascular: normal peripheral pulses, normal rate, regular rhythm Respiratory/Chest: chest wall non-tender, lungs clear, normal breath sounds Abdomen: normal bowel sounds, non tender, soft Extremities: normal inspection Edema: no edema noted Arm (L), no edema noted Arm (R), no edema noted Leg (L), no edema noted Leg (R), no edema noted Pedal (L), no edema noted Pedal (R), no edema noted Generalized Neurologic: responsive, motor weakness Skin: normal pigmentation, warm/dry Gentry Mcqueen DO Jun 26, 2018 12:09
--- NOTE | 2018-06-26 12:16 | Consultation ---
History of Present Illness General Date patient seen: Jun 26, 2018 Chief Complaint: Seizure Reason for Consultation: Leukocytosis Present Illness HPI 67-year-old male from [facility], the pt had new onset seizure. During the eval the pt was anxious and only oriented to place and year. the pt is not suicidal nor homicidal Allergies: Coded Allergies: No Known Allergies (Unverified , 06/24/18) Medication History Scheduled Amino Acids/Protein Hydrolys (Pro-Stat Liquid), 30 ML ORAL DAILY, (Reported) Bromfenac Sodium (Prolensa), 1.6 ML OP DAILY, (Reported) Carvedilol (Coreg), 3.125 MG ORAL EVERY 12 HOURS, (Reported) Docusate Sodium* (Colace*), 100 MG ORAL QHS, (Reported) Escitalopram Oxalate* (Lexapro*), 20 MG ORAL DAILY, (Reported) Heparin Sod (Porcine) (Heparin Sodium*), 5,000 UNITS IV DAILY, (Reported) Multivitamins* (Multivitamins*), 1 TAB ORAL DAILY, (Reported) Quetiapine Fumarate* (Seroquel*), 25 MG ORAL TWICE A DAY, (Reported) Trazodone Hcl* (Desyrel*), 50 MG ORAL BEDTIME, (Reported) Scheduled PRN Acetaminophen* (Acetaminophen 325MG Tablet*), 325 MG ORAL Q4H PRN for For Pain, (Reported) Lorazepam* (Ativan*), 0.5 MG ORAL THREE TIMES A DAY PRN for For Anxiety, ( Reported) Discontinued Medications Bisacodyl (Dulcolax), 10 MG RC, (Reported) Discontinued Reason: Pt stopped taking med Enoxaparin (Lovenox), 40 MG SUBQ, (Reported) Discontinued Reason: Pt stopped taking med Patient History Limited by: medical condition History Provided By: Patient, Medical Record Healthcare decision maker N Resuscitation status Full Code Advanced Directive on File No Past Medical/Surgical History Past Medical/Surgical History: (1) Urinary tract infection (2) Diabetes mellitus (3) Parkinson disease (4) COPD (chronic obstructive pulmonary disease) (5) Hypertension (6) Seizure disorder (7) New onset seizure Review of Systems Psychiatric: Reports: see HPI, prior hx, anxiety, depressed feelings, emotional problems Physical Exam General Appearance: no apparent distress, alert Neurologic: oriented x 3, responsive, depressed affect Last 24 Hour Vital Signs Date Time Temp Pulse Resp B/P (MAP) Pulse Ox O2 Delivery O2 Flow Rate FiO2 06/26/18 11:27 Room Air 06/26/18 08:00 60 06/26/18 08:00 97.3 55 20 114/60 (78) 96 97.3 06/26/18 04:00 66 06/26/18 04:00 99.1 80 20 124/64 (84) 96 99.1 06/26/18 00:00 97.5 76 20 115/53 (73) 95 97.5 06/26/18 00:00 75 06/25/18 21:00 Room Air 06/25/18 20:57 78 109/62 06/25/18 20:00 67 06/25/18 19:58 97.9 78 21 109/62 (78) 96 97.9 06/25/18 16:00 67 06/25/18 16:00 97.9 62 20 122/68 (86) 96 97.9 Intake and Output 06/25/18 06/26/18 19:00 07:00 Intake Total 360 ml Balance 360 ml Intake Oral 360 ml # Voids 3 1 # Bowel Movements 1 Laboratory Tests Test 06/26/18 06:00 White Blood Count 11.8 K/UL (4.8-10.8) H Red Blood Count 4.38 M/UL (4.70-6.10) L Hemoglobin 13.4 G/DL (14.2-18.0) L Hematocrit 40.8 % (42.0-52.0) L Mean Corpuscular Volume 93 FL (80-99) Mean Corpuscular Hemoglobin 30.6 PG (27.0-31.0) Mean Corpuscular Hemoglobin Concent 32.9 G/DL (32.0-36.0) Red Cell Distribution Width 13.1 % (11.6-14.8) Platelet Count 202 K/UL (150-450) Mean Platelet Volume 7.5 FL (6.5-10.1) Neutrophils (%) (Auto) 75.9 % (45.0-75.0) H Lymphocytes (%) (Auto) 12.6 % (20.0-45.0) L Monocytes (%) (Auto) 8.7 % (1.0-10.0) Eosinophils (%) (Auto) 2.2 % (0.0-3.0) Basophils (%) (Auto) 0.5 % (0.0-2.0) Sodium Level 141 MMOL/L (136-145) Potassium Level 4.1 MMOL/L (3.5-5.1) Chloride Level 109 MMOL/L (98-107) H Carbon Dioxide Level 26 MMOL/L (21-32) Anion Gap 7 mmol/L (5-15) Blood Urea Nitrogen 14 mg/dL (7-18) Creatinine 0.8 MG/DL (0.55-1.30) Estimat Glomerular Filtration Rate > 60 mL/min (>60) Glucose Level 81 MG/DL (74-106) Calcium Level 9.0 MG/DL (8.5-10.1) Phosphorus Level 3.0 MG/DL (2.5-4.9) Magnesium Level 1.7 MG/DL (1.8-2.4) L Total Bilirubin 0.7 MG/DL (0.2-1.0) Aspartate Amino Transf (AST/SGOT) 13 U/L (15-37) L Alanine Aminotransferase (ALT/SGPT) 19 U/L (12-78) Alkaline Phosphatase 74 U/L (46-116) Total Protein 6.8 G/DL (6.4-8.2) Albumin 2.8 G/DL (3.4-5.0) L Globulin 4.0 g/dL Albumin/Globulin Ratio 0.7 (1.0-2.7) L Height (Feet): 6 Height (Inches): 0.00 Weight (Pounds): 158 Medications Current Medications Medications (Trade) Dose Ordered Sig/Isidro Route PRN Reason Start Time Stop Time Status Last Admin Dose Admin Acetaminophen (Tylenol) 650 mg Q4H PRN ORAL T>100.5 06/24/18 18:45 07/24/18 18:44 Al Hydroxide/Mg Hydroxide (Mylanta II) 30 ml Q6H PRN ORAL dyspepsia 06/24/18 18:45 07/24/18 18:44 Carvedilol (Coreg) 3.125 mg EVERY 12 HOURS ORAL 06/24/18 21:00 07/24/18 20:59 06/25/18 20:57 Dextrose (Dextrose 50%) 25 ml Q1H PRN IV hypoglycemia 06/24/18 19:00 07/24/18 18:59 Dextrose (Dextrose 50%) 50 ml Q1H PRN IV hypoglycemia 06/24/18 19:00 07/24/18 18:59 Heparin Sodium (Porcine) (Heparin 5000 units/ml) 5,000 units EVERY 12 HOURS SUBQ 06/24/18 21:00 07/24/18 20:59 06/26/18 09:45 Levetiracetam (Keppra) 1,000 mg Q12HR ORAL 06/26/18 21:00 07/24/18 20:59 Levofloxacin 100 ml @ 100 mls/hr Q24H IVPB 06/24/18 20:00 07/01/18 19:59 06/25/18 20:00 Lorazepam (Ativan 2mg/ml 1ml) 2 mg EVERY HOUR PRN IV seizures 06/24/18 18:45 07/01/18 18:44 Lorazepam (Ativan) 0.5 mg Q8H PRN ORAL For Anxiety 06/24/18 18:45 07/01/18 18:44 06/25/18 09:07 Morphine Sulfate (Morphine Sulfate) 1 mg Q4H PRN IVP PAIN 4-10 06/24/18 18:45 07/01/18 18:44 Ondansetron HCl (Zofran) 4 mg Q6H PRN IVP Nausea & Vomiting 06/24/18 18:45 07/24/18 18:44 Polyethylene Glycol (Miralax) 17 gm HSPRN PRN ORAL Constipation 06/24/18 18:45 07/24/18 18:44 Quetiapine Fumarate (SEROquel) 25 mg Q12HR ORAL 06/24/18 21:00 07/24/18 20:59 06/26/18 09:45 Trazodone HCl (Desyrel) 50 mg BEDTIME ORAL 06/24/18 21:00 07/24/18 20:59 06/25/18 20:57 Zolpidem Tartrate (Ambien) 5 mg HSPRN PRN ORAL Insomnia 06/24/18 21:00 07/01/18 20:59 Assessment/Plan Status: stable Assessment/Plan Schizophrenia MDD -cont seroquel -cont trazadone -provided /Jessica Driscoll MD Jun 26, 2018 12:16
[2018-06-26] MEDS ORDERED: Morphine Sulfate 2mg/ml Inj IVP PRN (14:45)
[2018-06-26] MEDS ORDERED: LORazepam Inj 2mg/ml 1ml IV PRN (15:00)
[2018-06-26] MEDS ORDERED: LORazepam 0.5mg tab ORAL PRN (15:03)
[2018-06-26] MEDS ORDERED: cefTRIAXone 1gm/D5W 55ml IVPB SCH ×2 (18:00)
[2018-06-26] MEDS ORDERED: Mylanta II UD 30ml ORAL PRN (18:45)
[2018-06-26] MEDS ORDERED: Miralax 17gm pkt ORAL PRN (18:45)
[2018-06-26] MEDS ORDERED: TraZODone 50mg tab ORAL SCH (21:00)
[2018-06-26] MEDS ORDERED: Zolpidem 5mg tab ORAL PRN (21:00)
--- NOTE | 2018-06-27 05:30 | Consultation ---
DATE OF CONSULTATION: 06/26/2018 PSYCHOTHERAPY CONSULTATION PROGRESS NOTE CONSULTING PHYSICIAN: Carlos Em M.D. TREATING ATTENDING PHYSICIAN: Gentry Mcqueen D.O. HISTORY OF PRESENT ILLNESS: The patient is a 67-year-old male patient who is from [facility]. The patient is brought in to the hospital for possible onset of seizures. This patient has been tired, sleeping, and feels very confused, and for these reasons, and was referred to psychotherapy services. The patient is awake and able to communicate. He remains confused and disorganized in his thought process. However, he is able to communicate and articulate his thoughts. He states that he did have a seizure. However, he does not remember much information from his seizure. He states that he wants to go back to his nursing facility. He is having difficulty recalling his date of . He is also having difficulty recalling at this time information regarding his medical history or psychiatric history. The patient at this time is very confused, disorganized, and helpless. Today, he denies suicidal or homicidal thoughts or ideation. Denies auditory or visual hallucinations. The patient is cooperative with the clinician. He states that he will cooperate with his nursing staff for treatment. PAST MEDICAL HISTORY: Diabetes, Parkinson's, hypertension, COPD, and possible seizure. ALLERGIES: The patient has no known drug allergies. SUBSTANCE ABUSE HISTORY: The patient denies history of alcohol use or illicit substance use. PSYCHIATRIC HISTORY: The patient has a history of schizophrenia and has been treated with psychotropic medications in the past. SOCIAL HISTORY: The patient is financially sustained through [employer]. He is a male patient. MENTAL STATUS EXAMINATION: The patient is alert and oriented to person and place. His mood is dysphoric. Affect is blunted. Thought process is disorganized. He has poor attention and concentration. Poor insight, judgment, and impulse control. ASSESSMENT: AXIS I Paranoid schizophrenia. AXIS II Deferred. AXIS III Per history and physical. AXIS IV . AXIS V . PLAN: This clinician assessed this patient. Provided the patient with reality orientation. Referred to psychotherapy. Cognitive behavioral intervention in the hospital setting. . This clinician has reviewed the patient's care. Discussed treatment with treatment team. Carlos Em PsyD. DR: ARMANDO JOB#: [id number] CC:
[2018-06-27 07:25] LABS: ANION GAP 6 mmol/L (5-15); BLOOD UREA NITROGEN 16 mg/dL (7-18); CALCIUM 9.2 MG/DL (8.5-10.1); CARBON DIOXIDE 27 MMOL/L (21-32); CHLORIDE 108 MMOL/L (98-107); CREATININE 0.9 MG/DL (0.55-1.30); POTASSIUM 4.3 MMOL/L (3.5-5.1); SODIUM 141 MMOL/L (136-145)
[2018-06-27 07:31] LABS: BASOPHILS % (AUTO) 0.9 % (0.0-2.0); EOSINOPHILS % (AUTO) 3.7 % (0.0-3.0); HEMATOCRIT 43.5 % (42.0-52.0); HEMOGLOBIN 14.6 G/DL (14.2-18.0); LYMPHOCYTES % (AUTO) 23.6 % (20.0-45.0); MEAN CORPUSCULAR VOLUME 93 FL (80-99); MONOCYTES % (AUTO) 9.3 % (1.0-10.0); NEUTROPHILS % (AUTO) 62.5 % (45.0-75.0); PLATELET COUNT 217 K/UL (150-450); RED BLOOD COUNT 4.67 M/UL (4.70-6.10); WHITE BLOOD COUNT 9.2 K/UL (4.8-10.8)
[2018-06-27 08:00] VITALS: BP 111/66
[2018-06-27] MEDS: Heparin 5000 units/ml inj SUBQ SCH (08:38)
--- NOTE | 2018-06-27 08:59 | Infectious Diseases Prog Note ---
Assessment/Plan Assessment/Plan 67 yo male who presented to the ED on 06/24/18 with [facility]. 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 Subjective Allergies: Coded Allergies: No Known Allergies (Unverified , 06/24/18) Subjective Patient afebrile Leukocytosis resolved UCx - E-coli resist to Levo Objective Vital Signs Last 24 Hour Vital Signs Date Time Temp Pulse Resp B/P (MAP) Pulse Ox O2 Delivery O2 Flow Rate FiO2 06/27/18 08:32 69 111/69 06/26/18 23:41 98.9 63 20 113/70 (84) 92 98.9 06/26/18 21:03 65 128/67 06/26/18 20:42 Room Air 06/26/18 20:00 97.7 60 20 128/67 (87) 94 97.7 06/26/18 16:00 98.2 61 19 115/72 (86) 93 98.2 06/26/18 12:00 97.5 59 20 120/75 (90) 92 97.5 06/26/18 11:27 Room Air Height (Feet): 6 Height (Inches): 0.00 Weight (Pounds): 158 Objective Gen:NAD, Awake, Speak much clearer today,. HEENT: NCAT, MMM, EOMI, LUNGS:CTAB, No W/C, No Accessory muscle use CARDS: RRR, S1, S2, No M/R/G ABD: Soft, NT, ND, No R/G, + BS Ext: C/C/E, Pulses 2+ B/L (DP, Rad) NEURO: A/O x 2 Microbiology Date/Time Source Procedure Growth Status 06/24/18 15:35 Nasal Nares MRSA Culture - Final NO METHICILLIN RESISTANT STAPH AUREUS... Complete 06/24/18 14:56 Urine,Clean Catch Urine Culture - Final Escherichia Coli Complete 06/24/18 15:35 Rectum VRE Culture - Final Enterococcus Faecalis - Vre Complete 06/24/18 15:35 Rectum - Final NO CARBAPENEM-RESISTANT ENTEROBACTERI... Complete Laboratory Tests Test 06/27/18 06:15 White Blood Count 9.2 K/UL (4.8-10.8) Red Blood Count 4.67 M/UL (4.70-6.10) L Hemoglobin 14.6 G/DL (14.2-18.0) Hematocrit 43.5 % (42.0-52.0) Mean Corpuscular Volume 93 FL (80-99) Mean Corpuscular Hemoglobin 31.2 PG (27.0-31.0) H Mean Corpuscular Hemoglobin Concent 33.5 G/DL (32.0-36.0) Red Cell Distribution Width 13.0 % (11.6-14.8) Platelet Count 217 K/UL (150-450) Mean Platelet Volume 7.7 FL (6.5-10.1) Neutrophils (%) (Auto) 62.5 % (45.0-75.0) Lymphocytes (%) (Auto) 23.6 % (20.0-45.0) Monocytes (%) (Auto) 9.3 % (1.0-10.0) Eosinophils (%) (Auto) 3.7 % (0.0-3.0) H Basophils (%) (Auto) 0.9 % (0.0-2.0) Sodium Level 141 MMOL/L (136-145) Potassium Level 4.3 MMOL/L (3.5-5.1) Chloride Level 108 MMOL/L (98-107) H Carbon Dioxide Level 27 MMOL/L (21-32) Anion Gap 6 mmol/L (5-15) Blood Urea Nitrogen 16 mg/dL (7-18) Creatinine 0.9 MG/DL (0.55-1.30) Estimat Glomerular Filtration Rate > 60 mL/min (>60) Glucose Level 92 MG/DL (74-106) Calcium Level 9.2 MG/DL (8.5-10.1) Current Medications Medications (Trade) Dose Ordered Sig/Isidro Route PRN Reason Start Time Stop Time Status Last Admin Dose Admin Acetaminophen (Tylenol) 650 mg Q4H PRN ORAL T>100.5 06/26/18 14:45 07/24/18 18:44 Al Hydroxide/Mg Hydroxide (Mylanta II) 30 ml Q6H PRN ORAL dyspepsia 06/26/18 18:45 10/25/18 18:44 Carvedilol (Coreg) 3.125 mg EVERY 12 HOURS ORAL 06/26/18 21:00 07/24/18 20:59 06/27/18 08:32 Ceftriaxone Sodium 1 gm/ Dextrose 55 ml @ 110 mls/hr Q24H IVPB 06/26/18 18:00 07/03/18 17:59 06/26/18 18:36 Dextrose (Dextrose 50%) 25 ml Q1H PRN IV hypoglycemia 06/26/18 15:00 07/26/18 14:59 Dextrose (Dextrose 50%) 50 ml Q1H PRN IV hypoglycemia 06/26/18 15:00 07/26/18 14:59 Heparin Sodium (Porcine) (Heparin 5000 units/ml) 5,000 units EVERY 12 HOURS SUBQ 06/26/18 21:00 07/24/18 20:59 06/27/18 08:38 Levetiracetam (Keppra) 1,000 mg Q12HR ORAL 06/26/18 21:00 07/24/18 20:59 06/27/18 08:31 Lorazepam (Ativan 2mg/ml 1ml) 2 mg Q1H PRN IV seizures 06/26/18 15:00 07/03/18 14:59 Lorazepam (Ativan) 0.5 mg Q8H PRN ORAL For Anxiety 06/26/18 15:03 07/01/18 15:02 Morphine Sulfate (Morphine Sulfate) 1 mg Q4H PRN IVP PAIN 4-10 06/26/18 14:45 07/01/18 18:44 Ondansetron HCl (Zofran) 4 mg Q6H PRN IVP Nausea & Vomiting 06/26/18 18:45 07/24/18 18:44 Polyethylene Glycol (Miralax) 17 gm HSPRN PRN ORAL Constipation 06/26/18 18:45 07/24/18 18:44 Quetiapine Fumarate (SEROquel) 25 mg Q12HR ORAL 06/26/18 21:00 07/24/18 20:59 06/27/18 08:32 Trazodone HCl (Desyrel) 50 mg BEDTIME ORAL 06/26/18 21:00 07/24/18 20:59 06/26/18 21:03 Zolpidem Tartrate (Ambien) 5 mg HSPRN PRN ORAL Insomnia 06/26/18 21:00 07/01/18 20:59 Luis Nunes MD Jun 27, 2018 08:59
[2018-06-27 12:00] VITALS: BP 114/65
--- NOTE | 2018-06-27 12:41 | Pulmonology Progress Note ---
Assessment/Plan Problems: (1) New onset seizure (2) COPD (chronic obstructive pulmonary disease) (3) Urinary tract infection (4) Diabetes mellitus (5) Hypertension (6) Parkinson disease Assessment/Plan check keppra levels doing better no more seizures respiratory treatment doing better more coherent med/surg on Depakote to 1000 BID pt/ot Subjective ROS Limited/Unobtainable: No Interval Events: awake Constitutional: Reports: no symptoms HEENT: Repors: no symptoms Allergies: Coded Allergies: No Known Allergies (Unverified , 06/24/18) Objective Last 24 Hour Vital Signs Date Time Temp Pulse Resp B/P (MAP) Pulse Ox O2 Delivery O2 Flow Rate FiO2 06/27/18 08:32 69 111/69 06/27/18 08:00 Room Air 06/27/18 08:00 99.0 69 20 111/66 (81) 96 99.0 69 06/26/18 23:41 98.9 63 20 113/70 (84) 92 98.9 06/26/18 21:03 65 128/67 06/26/18 20:42 Room Air 06/26/18 20:00 97.7 60 20 128/67 (87) 94 97.7 06/26/18 16:00 98.2 61 19 115/72 (86) 93 98.2 Intake and Output 06/26/18 06/27/18 19:00 07:00 Intake Total 120 ml 295 ml Balance 120 ml 295 ml Intake Oral 120 ml 240 ml IV Total 55 ml # Voids 4 General Appearance: WD/WN, no acute distress HEENT: normocephalic Respiratory/Chest: chest wall non-tender, lungs clear, no respiratory distress Cardiovascular: normal peripheral pulses, normal rate, regular rhythm Abdomen: normal bowel sounds, soft, non tender Genitourinary: normal external genitalia Extremities: no clubbing Microbiology Date/Time Source Procedure Growth Status 06/24/18 15:35 Nasal Nares MRSA Culture - Final NO METHICILLIN RESISTANT STAPH AUREUS... Complete 06/24/18 14:56 Urine,Clean Catch Urine Culture - Final Escherichia Coli Complete 06/24/18 15:35 Rectum VRE Culture - Final Enterococcus Faecalis - Vre Complete 06/24/18 15:35 Rectum - Final NO CARBAPENEM-RESISTANT ENTEROBACTERI... Complete Laboratory Tests 06/27/18 06:15: White Blood Count 9.2, Red Blood Count 4.67L, Hemoglobin 14.6, Hematocrit 43.5, Mean Corpuscular Volume 93, Mean Corpuscular Hemoglobin 31.2H, Mean Corpuscular Hemoglobin Concent 33.5, Red Cell Distribution Width 13.0, Platelet Count 217, Mean Platelet Volume 7.7, Neutrophils (%) (Auto) 62.5, Lymphocytes (%) (Auto) 23.6, Monocytes (%) (Auto) 9.3, Eosinophils (%) (Auto) 3.7H, Basophils (%) (Auto ) 0.9, Sodium Level 141, Potassium Level 4.3, Chloride Level 108H, Carbon Dioxide Level 27, Anion Gap 6, Blood Urea Nitrogen 16, Creatinine 0.9, Estimat Glomerular Filtration Rate > 60, Glucose Level 92, Calcium Level 9.2 Current Medications Medications (Trade) Dose Ordered Sig/Isidro Route PRN Reason Start Time Stop Time Status Last Admin Dose Admin Acetaminophen (Tylenol) 650 mg Q4H PRN ORAL T>100.5 06/26/18 14:45 07/24/18 18:44 Al Hydroxide/Mg Hydroxide (Mylanta II) 30 ml Q6H PRN ORAL dyspepsia 06/26/18 18:45 07/24/18 18:44 Carvedilol (Coreg) 3.125 mg EVERY 12 HOURS ORAL 06/26/18 21:00 07/24/18 20:59 06/27/18 08:32 Ceftriaxone Sodium 1 gm/ Dextrose 55 ml @ 110 mls/hr Q24H IVPB 06/26/18 18:00 07/03/18 17:59 06/26/18 18:36 Dextrose (Dextrose 50%) 25 ml Q1H PRN IV hypoglycemia 06/26/18 15:00 07/26/18 14:59 Dextrose (Dextrose 50%) 50 ml Q1H PRN IV hypoglycemia 06/26/18 15:00 07/26/18 14:59 Heparin Sodium (Porcine) (Heparin 5000 units/ml) 5,000 units EVERY 12 HOURS SUBQ 06/26/18 21:00 07/24/18 20:59 06/27/18 08:38 Levetiracetam (Keppra) 1,000 mg Q12HR ORAL 06/26/18 21:00 07/24/18 20:59 06/27/18 08:31 Lorazepam (Ativan 2mg/ml 1ml) 2 mg Q1H PRN IV seizures 06/26/18 15:00 07/03/18 14:59 Lorazepam (Ativan) 0.5 mg Q8H PRN ORAL For Anxiety 06/26/18 15:03 07/01/18 15:02 Morphine Sulfate (Morphine Sulfate) 1 mg Q4H PRN IVP PAIN 4-10 06/26/18 14:45 07/01/18 18:44 Ondansetron HCl (Zofran) 4 mg Q6H PRN IVP Nausea & Vomiting 06/26/18 18:45 07/24/18 18:44 Polyethylene Glycol (Miralax) 17 gm HSPRN PRN ORAL Constipation 06/26/18 18:45 07/24/18 18:44 Quetiapine Fumarate (SEROquel) 25 mg Q12HR ORAL 06/26/18 21:00 07/24/18 20:59 06/27/18 08:32 Trazodone HCl (Desyrel) 50 mg BEDTIME ORAL 06/26/18 21:00 07/24/18 20:59 06/26/18 21:03 Zolpidem Tartrate (Ambien) 5 mg HSPRN PRN ORAL Insomnia 06/26/18 21:00 07/01/18 20:59 Conor Holloway MD Jun 27, 2018 12:41
[2018-06-27] MEDS ORDERED: ROCEPHIN 11 GM/50 ML IVPB (13:09)
[2018-06-27] MEDS ORDERED: LEVETIRACETAM1000 MG ORAL (13:10)
--- NOTE | 2018-06-27 13:27 | General Progress Note ---
Assessment/Plan Problem List: (1) Urinary tract infection ICD Codes: N39.0 - Urinary tract infection, site not specified SNOMED: 57165636 (2) Parkinson disease ICD Codes: G20 - Parkinson's disease SNOMED: 79275126 (3) Diabetes mellitus ICD Codes: E11.9 - Type 2 diabetes mellitus without complications SNOMED: 90982301 (4) COPD (chronic obstructive pulmonary disease) ICD Codes: J44.9 - Chronic obstructive pulmonary disease, unspecified SNOMED: 26379590 (5) Hypertension ICD Codes: I10 - Essential (primary) hypertension SNOMED: 04677244 (6) Seizure disorder ICD Codes: G40.909 - Epilepsy, unspecified, not intractable, without status epilepticus SNOMED: 130294369 (7) New onset seizure ICD Codes: R56.9 - Unspecified convulsions SNOMED: 92307276 Status: stable, progressing Assessment/Plan ot pt diet seizure control abx dc to snf Subjective Constitutional: Reports: weakness Allergies: Coded Allergies: No Known Allergies (Unverified , 06/24/18) All Systems: reviewed and negative except above Subjective calm in bed no seizure last night Objective Last 24 Hour Vital Signs Date Time Temp Pulse Resp B/P (MAP) Pulse Ox O2 Delivery O2 Flow Rate FiO2 06/27/18 12:00 98.6 72 20 114/65 (81) 96 98.6 72 06/27/18 08:32 69 111/69 06/27/18 08:00 Room Air 06/27/18 08:00 99.0 69 20 111/66 (81) 96 99.0 69 06/26/18 23:41 98.9 63 20 113/70 (84) 92 98.9 06/26/18 21:03 65 128/67 06/26/18 20:42 Room Air 06/26/18 20:00 97.7 60 20 128/67 (87) 94 97.7 06/26/18 16:00 98.2 61 19 115/72 (86) 93 98.2 Intake and Output 06/26/18 06/27/18 19:00 07:00 Intake Total 120 ml 295 ml Balance 120 ml 295 ml Intake Oral 120 ml 240 ml IV Total 55 ml # Voids 4 Laboratory Tests 06/27/18 06:15: White Blood Count 9.2, Red Blood Count 4.67L, Hemoglobin 14.6, Hematocrit 43.5, Mean Corpuscular Volume 93, Mean Corpuscular Hemoglobin 31.2H, Mean Corpuscular Hemoglobin Concent 33.5, Red Cell Distribution Width 13.0, Platelet Count 217, Mean Platelet Volume 7.7, Neutrophils (%) (Auto) 62.5, Lymphocytes (%) (Auto) 23.6, Monocytes (%) (Auto) 9.3, Eosinophils (%) (Auto) 3.7H, Basophils (%) (Auto ) 0.9, Sodium Level 141, Potassium Level 4.3, Chloride Level 108H, Carbon Dioxide Level 27, Anion Gap 6, Blood Urea Nitrogen 16, Creatinine 0.9, Estimat Glomerular Filtration Rate > 60, Glucose Level 92, Calcium Level 9.2, Levetiracetam (Keppra) Level [Pending] Height (Feet): 6 Height (Inches): 0.00 Weight (Pounds): 158 General Appearance: lethargic EENT: normal ENT inspection Neck: normal alignment Cardiovascular: normal peripheral pulses, normal rate, regular rhythm Respiratory/Chest: chest wall non-tender, lungs clear, normal breath sounds Abdomen: normal bowel sounds, non tender, soft Extremities: normal range of motion Edema: no edema noted Arm (L), no edema noted Arm (R), no edema noted Leg (L), no edema noted Leg (R), no edema noted Pedal (L), no edema noted Pedal (R), no edema noted Generalized Neurologic: motor weakness Skin: normal pigmentation, warm/dry Gentry Mcqueen DO Jun 27, 2018 13:27
--- NOTE | 2018-06-27 15:48 | General Progress Note ---
Assessment/Plan Status: stable Assessment/Plan Schizophrenia MDD -cont seroquel -cont trazadone -provided ro/st Subjective Date patient seen: Jun 27, 2018 Neurologic/Psychiatric: Reports: anxiety, depressed, emotional problems Allergies: Coded Allergies: No Known Allergies (Unverified , 06/24/18) Objective Last 24 Hour Vital Signs Date Time Temp Pulse Resp B/P (MAP) Pulse Ox O2 Delivery O2 Flow Rate FiO2 06/27/18 12:00 98.6 72 20 114/65 (81) 96 98.6 72 06/27/18 08:32 69 111/69 06/27/18 08:00 Room Air 06/27/18 08:00 99.0 69 20 111/66 (81) 96 99.0 69 06/26/18 23:41 98.9 63 20 113/70 (84) 92 98.9 06/26/18 21:03 65 128/67 06/26/18 20:42 Room Air 06/26/18 20:00 97.7 60 20 128/67 (87) 94 97.7 06/26/18 16:00 98.2 61 19 115/72 (86) 93 98.2 Intake and Output 06/26/18 06/27/18 19:00 07:00 Intake Total 120 ml 295 ml Balance 120 ml 295 ml Intake Oral 120 ml 240 ml IV Total 55 ml # Voids 4 Laboratory Tests 06/27/18 06:15: White Blood Count 9.2, Red Blood Count 4.67L, Hemoglobin 14.6, Hematocrit 43.5, Mean Corpuscular Volume 93, Mean Corpuscular Hemoglobin 31.2H, Mean Corpuscular Hemoglobin Concent 33.5, Red Cell Distribution Width 13.0, Platelet Count 217, Mean Platelet Volume 7.7, Neutrophils (%) (Auto) 62.5, Lymphocytes (%) (Auto) 23.6, Monocytes (%) (Auto) 9.3, Eosinophils (%) (Auto) 3.7H, Basophils (%) (Auto ) 0.9, Sodium Level 141, Potassium Level 4.3, Chloride Level 108H, Carbon Dioxide Level 27, Anion Gap 6, Blood Urea Nitrogen 16, Creatinine 0.9, Estimat Glomerular Filtration Rate > 60, Glucose Level 92, Calcium Level 9.2, Levetiracetam (Keppra) Level [Pending] Height (Feet): 6 Height (Inches): 0.00 Weight (Pounds): 158 General Appearance: no apparent distress, alert, confused Jessica Montgomery MD Jun 27, 2018 15:48
--- NOTE | 2018-06-28 00:44 | Progress Note ---
DATE: 06/27/2018 "NOTE: POOR AUDIO QUALITY" PSYCHOTHERAPY CONSULTATION PROGRESS NOTE SUBJECTIVE: This is a 67-year-old male patient, psychotherapy. The patient at this time is very confused, disorganized, and helpless denies suicidal or homicidal thoughts or ideation. . MENTAL STATUS EXAMINATION: The patient is alert and oriented to person and place. His mood is dysphoric. Affect is blunted. Thought process is disorganized. He has poor insight, judgment, and impulse control. ASSESSMENT: . PLAN: This clinician assessed this patient. Provided the patient with reality orientation. Referred to psychotherapy. . This clinician has reviewed the patient's care. Discussed treatment with treatment team. Carlos Em PsyD. DR: ARMANDO JOB#: [id number] CC:
--- NOTE | 2018-06-30 09:36 | Discharge Summary ---
Discharge Summary Discharge Summary _ DATE OF ADMISSION: 06/24/2018 DATE OF DISCHARGE: 06/27/2018 REASON FOR ADMISSION: 67 years old male with past medical history of hypertension, COPD, diabetes mellitus, hyperlipidemia, paranoid schizophrenia , was sent from the senior care facility after witnessed seizure. Patient had no prior history of seizure disorder. Vital signs revealed bradycardia with heart rate of 52 , tachypnea with respiratory rate of 24 . Patient required placement of supplemental oxygen via nasal cannula, with pulse oximetry 96% on oxygen. Laboratory workup revealed mild leukocytosis with WBC 11.3, stable hemoglobin and hematocrit. Stable chemistry and LFT. Glucose 127. Urinalysis with evidence of UTI. Urine toxicology screen was negative. 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 Other chronic age- related changes. No evidence of acute intracranial pathology. The patient was given IV Keppra in emergency department. Patient subsequently admitted with diagnoses of new onset of seizure, urinary tract infection. CONSULTANTS: ID specialist Dr Snell pulmonary Dr. Holloway psychiatrist HOSPITAL COURSE: Patient admitted to medical surgical floor. Seizure precaution maintained. Keppra was continued. Unfortunately no neurology evaluation was available at this time. No further seizure activity while in the hospital. Patient was discharged on Keppra. Outpatient neurology consult will be arranged. Patient started on empiric antibiotic . ID specialist closely followed. Urine culture revealed Escherichia coli. Antibiotic regimen optimized as per ID specialist recommendations to be completed at the senior [facility]. Blood pressure was managed with beta deep,remained stable. DVT prophylaxis provided. Supplemental oxygen provided as needed to keep pulse oximetry above 92%. Pulmonary toilet was on standby as needed. No evidence of bronchospasm on respiratory distress. Pulse oximetry prior to discharge stable on room air. Blood sugar was managed with sliding scale of insulin. Patient was working with physical and occupational therapists. Psychiatrist seen and evaluated patient and optimized psychiatric medication regimen . Pain management was addressed as needed. Bowel regimen instituted. Patient was stable for discharge FINAL DIAGNOSES: New onset of seizures UTI with Escherichia coli Hypertension COPD Diabetes mellitus Parkinson disease Schizophrenia Major depressive disorder DISCHARGE MEDICATIONS: See Medication Reconciliation list. DISCHARGE INSTRUCTIONS: Patient was discharged to the senior care facility. Follow up with medical doctor at the facility. I have been assigned to dictate discharge summary for this account. I was not involved in the patient's management. Autumn Toney NP Jun 30, 2018 09:36
== END 2018-06-27 15:04 | DRG 101 ==
LOC: EDBD 14:25 → EMR 14:58 → 2E 15:43 → EDBEDREQ 17:04 → 4E 06-26 14:58
DX: R56.9 Unspecified convulsions (principal); N39.0 Urinary tract infection, site not specified; F20.0 Paranoid schizophrenia; E46 Unspecified protein-calorie malnutrition; E11.9 Type 2 diabetes mellitus without complications; G20 Parkinson's disease; J44.9 Chronic obstructive pulmonary disease, unspecified; F32.9 Major depressive disorder, single episode, unspecified; R00.1 Bradycardia, unspecified; B96.20 Unspecified Escherichia coli [E. coli] as the cause of diseases classified elsewhere
CPT/HCPCS: 36415; 70450; 70551; 80048; 80053; 80299; 80307; 81003; 82248; 82962; 83735; 84100; 85025; 87081; 87086; 87181; 93005; 97803; 99285